=== PATIENT | male | born 1970 | race Caucasian/White ===

== ENCOUNTER 2017-04-30 10:22 | Emergency (ER) | payer BC, SELFPAY ==
--- NOTE | 2017-04-30 08:04 | XR_ITS ---
XR skull min 4V CLINICAL INDICATION: Pain following injury ITS.REASON: FELL GETTING OUT OF TRUCK ORDERING PHYSICIAN: INGA Barron PATIENT AGE: 47 years COMPARISON: None FINDINGS: No obvious calvarial fracture. Consider CT for more thorough evaluation clinically warranted. IMPRESSION: Negative skull series
--- NOTE | 2017-04-30 08:05 | XR_ITS ---
EXAM: Mandible 4 views. INDICATION: Posttraumatic pain. FINDINGS: No obvious mandibular fracture evident. If pain persists, consider CT for more thorough evaluation. There is moderate opacification of the left maxillary sinus which could be posttraumatic or inflammatory. Patient has a known left side zygomatic fracture IMPRESSION: 1. No obvious mandibular fracture. 2. Partially opacified left maxillary sinus which could be inflammatory or posttraumatic. Consider dedicated CT of the facial bones for more thorough evaluation 3. Depressed left zygomatic arch fracture
[2017-04-30 11:23] VITALS: BP 140/93; PULSE 99; RESP 16; TEMP 37.2; O2SAT 98; BMI 26.6
--- NOTE | 2017-04-30 22:33 | XR_ITS ---
XR wrist RT min 3V HISTORY: Pain following injury ITS.REASON: FELL ON ICE ORDERING PHYSICIAN: INGA Barron PATIENT AGE: 47 years COMPARISON: None FINDINGS: There is a minimally displaced longitudinal fracture involving the posterior distal radius. The fracture fragment measures 13 mm longitudinal ligament is displaced dorsally by approximately 2 mm. No other anomalies. IMPRESSION: Minimally displaced longitudinal fracture posterior distal radius. The fracture does not appear to involve the articular surface
--- NOTE | 2017-04-30 22:33 | XR_ITS ---
XR facial bones min 2 V CLINICAL INDICATION: Pain following injury ITS.REASON: FELL ON ICE ORDERING PHYSICIAN: INGA Barron PATIENT AGE: 47 years COMPARISON: None FINDINGS: Images are obtained of the zygomatic arches. There is a depressed fracture involving the left zygomatic arch. The fracture is comminuted and depressed by at least 4 mm. IMPRESSION: Depressed left comminuted zygomatic arch fracture Consider CT for more thorough evaluation of the remaining facial bones
== END 2017-04-30 12:30 | disposition home or self-care (01) ==
PROVIDERS: Emergency Provider Physician Assistant; Family Provider Family Medicine
DX: S69.90XA Unspecified injury of unspecified wrist, hand and finger(s), initial encounter (principal); S00.83XA Contusion of other part of head, initial encounter; V87.8XXA Person injured in other specified noncollision transport accidents involving motor vehicle (traffic), initial encounter
CPT/HCPCS: 70110; 70150; 70260; 73110; 99202; 99282; 99291

== ENCOUNTER → 2017-05-04 14:52 | Outpatient (CLI) | payer BC, SELFPAY ==
--- NOTE | 2017-05-04 14:56 | CT_ITS ---
CT facial bones wo con CLINICAL INDICATION: Left facial pain and swelling following injury with bruising. Zygomatic fracture on the left on recent plain films ORDERING PHYSICIAN: INAG Barron PATIENT AGE: 47 years COMPARISON: None TECHNIQUE:Axial, sagittal, and coronal images are generated and reviewed without contrast COMPARISON: None FINDINGS: Multiple left-sided facial fractures are present including: Depressed/displaced comminuted left Zygomatic fracture. The central fracture fragments are depressed medially by approximately 5 mm. The posterior fracture fragment is displaced medially x 3 mm. Nondisplaced fracture involving the left infraorbital region extending into the floor of the left orbit. No obvious entrapment. Mildly displaced fracture involving the lateral wall the left maxillary sinus. The central fracture fragments are depressed medially by approximately 5 mm. This fracture is comminuted. Comminuted nondepressed fracture involves the anterior wall the left maxillary sinus. Displaced fracture involving the lateral wall of the left orbit posteriorly. The posterior fracture fragments are displaced medially x 4 mm and are causing encroachment upon the lateral rectus and inferior rectus muscles posteriorly There is moderate thickening of the left maxillary sinus. The pterygoid plates are intact. The medial wall left maxillary sinus is intact. There is moderate soft tissue swelling overlying the left maxillary region. IMPRESSION: Comminuted displaced left tripod fracture. Multiple left-sided facial fractures as detailed above. Please above for detailed description.
--- NOTE | 2017-05-04 14:57 | CT_ITS ---
CT wrist RT wo con HISTORY: Right wrist pain and swelling following injury, fracture evaluation ORDERING PHYSICIAN: INGA Barron PATIENT AGE: 47 years TECHNIQUE: Axial images are obtained of the wrist without contrast. Sagittal, coronal, and 3-D reformatted images are generated and reviewed as well COMPARISON: Radiograph of 04/30/2017 FINDINGS: There is a longitudinal fracture involving the dorsal distal aspect of the radius with some minimal comminution. This fracture is just along the dorsal aspect of the articular surface of the radiocarpal joint. There is minimal displacement of the fracture fragment x 2 mm. Fracture fragment measures 13 mm in length. There is a small bony density also along the dorsal aspect of the wrist at the trapezoid/lunate junction consistent with an avulsion fracture possibly from the lunate. This however is presently well-circumscribed and may be old. Please correlate with patient's area of point tenderness. There is generalized soft tissue swelling along the dorsal aspect of the wrist. IMPRESSION: 1. Minimally displaced comminuted longitudinal fracture of the dorsal aspect of the distal radius 2. Avulsion fracture at the lunate trapezoid junction possibly old.
== END ==
PROVIDERS: Family Provider Family Medicine; PCP Physician Assistant; Visit Provider Physician Assistant
DX: S02.40FA Zygomatic fracture, left side, initial encounter for closed fracture (principal); S62.101A Fracture of unspecified carpal bone, right wrist, initial encounter for closed fracture
CPT/HCPCS: 70486; 73200

== ENCOUNTER → 2017-05-12 09:00 | Outpatient (CLI) | payer BC, SELFPAY ==
--- NOTE | 2017-05-12 09:05 | XR_ITS ---
XR wrist RT min 3V HISTORY: Follow-up fracture ITS.REASON: right wrist fracture ORDERING PHYSICIAN: Conor Duenas MD PATIENT AGE: 47 years COMPARISON: 04/30/2017 FINDINGS: There is been no significant change in the middle ear displaced longitudinal fracture of the dorsal distal radius. Fracture line is still visible without obvious callus formation. Fracture line may be somewhat less distinct which may be seen with early healing. IMPRESSION: Overall no change minimal displacement dorsal distal radial fracture.
== END ==
PROVIDERS: PCP Physician Assistant; Visit Provider Orthopaedic Surgery
DX: S62.101A Fracture of unspecified carpal bone, right wrist, initial encounter for closed fracture (principal)
CPT/HCPCS: 73110

== ENCOUNTER → 2017-06-06 08:36 | Outpatient (CLI) | payer BC, SELFPAY ==
--- NOTE | 2017-06-06 08:38 | XR_ITS ---
XR wrist RT min 3V HISTORY: Follow-up fracture ITS.REASON: Right wrist fracture ORDERING PHYSICIAN: Conor Duenas MD PATIENT AGE: 47 years COMPARISON: 05/12/2017 FINDINGS: There is a longitudinal fracture involving the dorsal aspect of the distal radius. Fracture line is still visible not significant change. There is some suspected underlying callus formation. IMPRESSION: No change healing fracture distal radius
== END ==
PROVIDERS: PCP Physician Assistant; Visit Provider Orthopaedic Surgery
DX: S52.509A Unspecified fracture of the lower end of unspecified radius, initial encounter for closed fracture (principal)
CPT/HCPCS: 73110

== ENCOUNTER → 2017-06-20 13:56 | Outpatient (CLI) | payer BC, SELFPAY ==
--- NOTE | 2017-06-20 13:58 | XR_ITS ---
XR wrist RT min 3V HISTORY: Follow-up fracture ITS.REASON: Right wrist fracture ORDERING PHYSICIAN: Conor Duenas MD PATIENT AGE: 47 years COMPARISON: 06/06/2017 FINDINGS: There is persistent longitudinal fracture involving the dorsal aspect of the distal radius as previously described. The fracture line may be slightly less apparent compared to the previous exam. The fracture remains nondisplaced. IMPRESSION: Good alignment healing distal radial fracture
== END ==
PROVIDERS: PCP Physician Assistant; Visit Provider Orthopaedic Surgery
DX: S52.501A Unspecified fracture of the lower end of right radius, initial encounter for closed fracture (principal)
CPT/HCPCS: 73110

== ENCOUNTER → 2020-12-17 16:28 | Outpatient (CLI) | payer BC, SELFPAY ==
--- NOTE | 2020-12-17 16:32 | XR_ITS ---
PROCEDURE: XR RIBS BI MIN 4V W CXR1V CLINICAL INDICATION: R Post rib pain COMPARISON: No exams were available for comparison FINDINGS: There is a minimally offset right 10th rib fracture posterior laterally. No other fractures are apparent. Frontal view of the chest shows no evidence of pneumothorax. Unremarkable cardiovascular structures with clear lungs. IMPRESSION: Minimally offset right 10th rib fracture Dictated by: Ziyad Iraheta MD 12/17/2020 16:53 Ziyad Iraheta MD in [place] 12/17/2020 16:53
== END ==
PROVIDERS: PCP Nurse Practitioner Family; Visit Provider Nurse Practitioner Family
DX: R07.81 Pleurodynia (principal)
CPT/HCPCS: 71111

== ENCOUNTER 2021-05-03 10:20 | Emergency (ER) | payer BC, SELFPAY ==
--- NOTE | 2021-05-03 10:26 | XR_ITS ---
FINAL REPORT CLINICAL HISTORY: fall FINDINGS: 3 views of the left wrist were obtained. There is no acute fracture or dislocation. The joint spaces are intact. There are small chronic calcifications along the dorsal wrist. IMPRESSION: No acute abnormality. Reviewed, Interpreted and Dictated by Carlos Pineda III, MD Transcribed by Jared Armando Authenticated by Carlos Pineda III, MD on 05/03/2021 11:43:58 AM [facility]
--- NOTE | 2021-05-03 10:26 | XR_ITS ---
FINAL REPORT CLINICAL HISTORY: fall FINDINGS: 2 views of the left forearm were obtained. There is no acute fracture or dislocation. The joint spaces are intact. There is no soft tissue abnormality. IMPRESSION: No acute abnormality. Reviewed, Interpreted and Dictated by Carlos Pineda III, MD Transcribed by Jared Armando Authenticated by Carlos Pineda III, MD on 05/03/2021 11:44:[address] [facility]
--- NOTE | 2021-05-03 10:26 | XR_ITS ---
FINAL REPORT CLINICAL HISTORY: fall FINDINGS: LEFT HAND: 3 views of the left hand were obtained. There is no acute fracture or dislocation. Visualized joint spaces are normally aligned. There is dorsal hand soft tissue swelling. IMPRESSION: Soft tissue swelling with no acute bony abnormality. Reviewed, Interpreted and Dictated by Carlos Pineda III, MD Transcribed by Jared Armando Authenticated by Carlos Pineda III, MD on 05/03/2021 11:44:01 AM [facility]
[2021-05-03 10:40] VITALS: BP 161/106; PULSE 102; RESP 20; TEMP 37.3; O2SAT 97; BMI 27.3
--- NOTE | 2021-05-03 11:39 | HMH.EDUTC ---
[facility] [place] Disposition Clinical Impression: Left wrist sprain Qualifiers: Encounter type: initial encounter Qualified Code(s): S63.502A - Unspecified sprain of left wrist, initial encounter Sprain of left hand Qualifiers: Encounter type: initial encounter Qualified Code(s): S63.92XA - Sprain of unspecified part of left wrist and hand, initial encounter Fall Qualifiers: Encounter type: initial encounter Qualified Code(s): W19.XXXA - Unspecified fall, initial encounter Disposition: Home, Self-Care Condition on Discharge: Good Instructions: DI for Wrist Sprain, DI for Hand Injury Additional Instructions: Rest the extremity, apply ice for 15 minutes as tolerated three or four times per day, Elevate the extremity as tolerated while you are resting. Take ibuprofen for pain. I sent in a prescription to your pharmacy. Follow up with Dr. Agarwal (orthopedics). Sometimes there can be fractures that don't show up well on the first set of x-rays. So, you should follow up if you continue to have symptoms. I put in a referral but you need to call his office and schedule an appointment. Follow up with your regular doctor. GO TO THE ER FOR ANY WORSENING SYMPTOMS Prescriptions: Ibuprofen [Ibuprofen 600mg Tablet] 600 mg PO Q6HP PRN #30 tab PRN Reason: Mild Pain Transmission Status: Pending to [id number] Referrals: Provider,MD Ilana [Primary Care Provider] - Candido Agarwal MD [Staff Physician] - Forms: Work/School Release Time of Disposition: 11:58 Medical Decision Making - Medical Records Medical records reviewed: No: I reviewed the patient's medical records. - Isaak Inquiry Pt receiving controlled substance: No Vital Signs: 05/03/21 10:40 Temperature 99.1 F Temperature Source Oral Pulse Rate [Right Brachial] 102 H Respiratory Rate 20 Blood Pressure [Right Arm] 161/106 H Blood Pressure Mean [Right Arm] 124 Blood Pressure Source [Right Arm] Automatic Cuff Blood Pressure Position [Right Arm] Sitting 02 Sat by Pulse Oximetry 97 Oxygen Delivery Method Room Air - Lab Data Lab results reviewed: Yes: I reviewed the patient's lab results. - Radiology Data #1 Image(s): Wrist Image Reviewed: Yes I reviewed the patient's radiology image, Yes I have reviewed radiologist's interpretation Preliminary Findings: Normal/NAD, No Fracture Seen FINAL REPORT CLINICAL HISTORY: fall FINDINGS: 3 views of the left wrist were obtained. There is no acute fracture or dislocation. The joint spaces are intact. There are small chronic calcifications along the dorsal wrist. IMPRESSION: No acute abnormality. Reviewed, Interpreted and Dictated by Carlos Pineda III, MD Transcribed by Jared Armando Authenticated by Carlos Pineda III, MD on 05/03/2021 11:43:58 AM [facility] #2 Image(s): Hand Image Reviewed: Yes I reviewed the patient's radiology image, Yes I have reviewed radiologist's interpretation Preliminary Findings: No Fracture Seen FINAL REPORT CLINICAL HISTORY: fall FINDINGS: LEFT HAND: 3 views of the left hand were obtained. There is no acute fracture or dislocation. Visualized joint spaces are normally aligned. There is dorsal hand soft tissue swelling. IMPRESSION: Soft tissue swelling with no acute bony abnormality. Reviewed, Interpreted and Dictated by Carlos Pineda III, MD Transcribed by Jared Armando Authenticated by Carlos Pineda III, MD on 05/03/2021 11:44:01 AM [facility] #3 Image(s): Forearm Image Reviewed: Yes I reviewed the patient's radiology image, Yes I have reviewed radiologist's interpretation Preliminary Findings: Normal/NAD, No Fracture Seen FINAL REPORT CLINICAL HISTORY: fall FINDINGS: 2 views of the left forearm were obtained. There is no acute fracture or dislocation. The joint spaces are intact. There is no soft tissue abnormality.
[2021-05-03 12:02] VITALS: BP 161/106; PULSE 102; RESP 20; TEMP 37.3; O2SAT 97
--- NOTE | 2021-05-03 12:02 | PC.NURSE ---
PATIENT REFUSED VELCRO WRIST SPLINT AT THIS TIME, STATES HE HAS ONE AT HOME
== END 2021-05-03 12:08 | disposition home or self-care (01) ==
PROVIDERS: Emergency Provider Nurse Practitioner Family
DX: S63.502A Unspecified sprain of left wrist, initial encounter (principal); W18.30XA Fall on same level, unspecified, initial encounter; F17.210 Nicotine dependence, cigarettes, uncomplicated
CPT/HCPCS: 73090; 73110; 73130; 99202; G0463